=== PATIENT | female | born 1935 | race Caucasian/White ===

== ENCOUNTER 2017-03-02 10:39 | Outpatient (CLI) | payer MEDICARE, OTHER | END 2017-03-02 10:40 | LOC: LAB 10:39 | PROVIDERS: ATTEND Family Medicine | DX: E78.1 Pure hyperglyceridemia (principal); Z51.81 Encounter for therapeutic drug level monitoring | CPT/HCPCS: 36415; 80061; 84460 ==

== ENCOUNTER 2017-03-17 07:13 | Inpatient (IN) | payer MEDICARE, OTHER ==
[2017-03-17] MEDS ORDERED: IPRATROPIUM/ALBUTEROL SULFATE 3 ML AMPUL.NEB NEB ONE (07:37)
[2017-03-17 07:58] LABS: MEAN CORPUSCULAR HEMOGLOBIN 31.7 pg (28.0-34.0); MEAN CORPUSCULAR VOLUME 89.5 fl (80.0-100.0)
[2017-03-17 08:24] LABS: MONOCYTES % 3 % (0-11); SEGMENTED NEUTROPHILS % 32 % (39-79)
[2017-03-17 08:38] LABS: eGFR (African) > 60; eGFR (Non-African) > 60
[2017-03-17] MEDS ORDERED: LEVOFLOXACIN 500MG/D5W 100ML 100 ML IV ONE (09:14)
[2017-03-17] MEDS: LEVOFLOXACIN 500MG/D5W 100ML 500 MG in PREMIX BAG 1 BAG IV SCH (09:20)
[2017-03-17] MEDS ORDERED: FUROSEMIDE 20 MG/2 ML VIAL IVP ONE (10:00)
[2017-03-17] MEDS: SALINE FLUSH 10 ML DISP.SYRIN IV SCH ×2 (10:00→19:31)
[2017-03-17 10:58] VITALS: BMI 28.3
[2017-03-17] MEDS ORDERED: AZITHROMYCIN 500 MG in 0.9 % SODIUM CHLORIDE 250 ML IV SCH (11:00)
[2017-03-17] MEDS ORDERED: ACETAMINOPHEN 500 MG TABLET PO PRN (11:07)
[2017-03-17] MEDS ORDERED: ACETAMINOPHEN 500 MG TABLET ONE (11:09)
--- NOTE | 2017-03-17 11:25 | ED Physician Documentation ---
Upper Respiratory Symptoms - HISTORIAN Historian: patient - HPI Chief Complaint: Upper Respiratory Symptoms Additional Information: Nasal drainage and cough started one week ago but says they were allergy related in nature- started feeling really bad with weakness in the middle of the night around 3 a.m. Onset: days ago Duration: other (gradual onset) Context: denies: recent foreign travel, insect bite(s), tick(s), recent chemotherapy, multiple patients, same sx, other Severity: mild Associated Symptoms: earache, runny nose, sinus pain, sinus drainage, allergy, shortness of breath. denies: fever, chills, sweating, sore throat, hoarseness, hay fever, chest pain, bloody cough, hurts to breathe, headache Worsened by Deep Breath: No - ROS CONST/EYES: weakness CVS/RESP: shortness of breath. denies: chest pain, palpitations LYMPH: denies: leg swelling, rash, swollen glands, ankle swelling GI/: denies: none NEURO/PSYCH: denies: fainting, dizziness, confusion, anxiety, depression, other MS/SKIN: other (weakness) - PAST HX Lung Disease: none PE Risk Factors: hypertension Other History: CHF, A-Fib, hypertension, other (leukemia) Surgeries/Procedures: appendectomy, cholecystectomy, other (tonsillectomy) Allergies/Adverse Reactions: Allergies Allergy/AdvReac Type Severity Reaction Status Date / Time No Known Drug Allergies Allergy Verified 03/17/17 07:36 - SOCIAL HX Smoking History: non-smoker Alcohol Use: other (has one drink before bed) Drug Use: none - FAMILY HX Family History: denies: none, no significant history, aortic disease, cardiac disease, DVT, PE, other - VITAL SIGNS Vital Signs: Vital Signs Temp Pulse Resp BP Pulse Ox 98.3 F 85 20 130/94 94 03/17/17 10:00 03/17/17 10:00 03/17/17 10:00 03/17/17 10:03/17/17 10:00 - REVIEWED ASSESSMENTS Nursing Assessment Reviewed: Yes Vitals Reviewed: Yes Progress - Progress Progress: some improvement after first HFN tx- expiratory wheezes heard anteriorally with crackles in right lower lobe ED Results Lab/Radiology - Lab Results Lab Results: Lab Results 03/17/17 03/17/17 03/17/17 07:52 07:52 07:50 WBC 60.00 K/ul H* K/ul (4.00-12.00) RBC 5.03 M/ul M/ul (3.90-5.20) Hgb 15.9 g/dL g/dL (12.0-16.0) Hct 45.1 % % (34.5-46.5) MCV 89.5 fl fl (80.0-100.0) MCH 31.7 pg pg (28.0-34.0) MCHC 35.4 g/dL g/dL (30.0-36.0) RDW 14.5 % H % (11.3-14.3) Plt Count 166 K/mm3 K/mm3 (130-400) Seg Neutrophils % 32 % L % (39-79) Lymphocytes % 62 % H % (16-50) Monocytes % 3 % % (0-11) Reactive Lymphocytes 3 % % (0-5) Plt Morphology Comment Normal (NORMAL) RBC Morph Comment Normal (NORMAL) Sodium 135 mmol/L L mmol/L (136-145) Potassium 4.0 mmol/L mmol/L (3.5-5.0) Chloride 101 mmol/L mmol/L (98-110) Carbon Dioxide 27 mmol/L mmol/L (20-32) BUN 30 mg/dL H mg/dL (10-26) Creatinine 0.9 mg/dL mg/dL (0.4-1.5) Estimated Creat Clear 69 Est GFR ( Amer) > 60 (60 - ) Est GFR (Non-Af Amer) > 60 (60 - ) Glucose 292 mg/dL H mg/dL (70-99) Calcium 9.8 mg/dL mg/dL (8.5-10.5) Total Bilirubin 0.8 mg/dL mg/dL (0.2-1.2) AST 27 U/L U/L (0-41) ALT 42 U/L U/L (0-45) Alkaline Phosphatase 65 U/L U/L (46-116) NT-Pro-B Natriuret Pep 558.8 pg/mL H pg/mL (15.0-450.0) Total Protein 7.1 g/dL g/dL (6.0-8.5) Albumin 4.8 g/dL g/dL (3.0-5.5) - Radiology Radiology Impressions: Report Submission Date: March 17, 2017 8:25:55 AM CDT Patient Study Name: CHAYO CISNEROS Date: March 17, 2017 8:00:00 AM CDT Modality Type: CR Gender: F Description: CHEST : 31 Institution: [facility] Physician: VADIM WINTER - ER 2 views of the chest History: SHORTNESS OF BREATH AND COUGH X COUPLE DAYS Findings: Comparison: December 14, 2016 Cardiomegaly with aortic calcification Opacities noted in the right lung base with interstitial prominence, no pleural effusion or pneumothorax Multilevel thoracic spine, bilateral shoulder degenerative changes are seen Impression: 1. Right lower lung infiltrate/ airspace disease with interstitial prominence. Recommend followup to resolution and exclude underlying mass. No pleural effusion. 2. Cardiomegaly with aortic calcification and mild pulmonary vascular congestion 3. Minimal left basilar atelectasis. Electronically signed on March 17, 2017 8:25:55 AM CDT by: Flaquita Lee - Orders Orders: ED Orders Category Date Time Status Activity as ordered BID Care 03/17/17 09:31 Active Activity as ordered D Care 03/17/17 09:31 Active Assess pulse oximetry Q4H Care 03/17/17 09:31 Active Continuous EKG monitoring Q4H Care 03/17/17 09:31 Active Do Not Give Influenza Vaccine 1T Care 03/17/17 09:31 Active Do Not Give Pneumococcal Vacci 1T Care 03/17/17 09:31 Active Document Bowel Movement Q8H Care 03/17/17 09:[address] Winter NOW Care 03/17/17 09:31 Ordered Further Nursing Orders 1T Care 03/17/17 09:31 Active Inpatient (Anticipate > 2 Midnight Stay) NOW Care 03/17/17 09:31 Ordered Inpatient Telemetry NOW Care 03/17/17 09:31 Ordered No VTE Prophylaxis Needed .Once Care 03/17/17 09:31 Active Obtain weight DAILY@0500 Care 03/17/17 09:31 Active Physical Therapy [Refer to Physical Therapy] 1T Care 03/17/17 09:31 Active Vital Signs Q4 Care 03/17/17 09:31 Active Dietary Consult [CONS] Routine Cons 03/17/17 09:31 Ordered 2 Gram Sodium Diet 03/17/17 Lunch Ordered Regular Diet 03/17/17 Lunch Ordered CHEST P.A.&LAT 2 VIEWS [RAD] Routine Exams 03/17/17 Taken CHEST P.A.&LAT 2 VIEWS [RAD] Routine Exams 03/19/17 06:00 Ordered BLOOD CULTURE Stat Lab 03/17/17 09:13 Received BNP [NT-proBNP] Stat Lab 03/17/17 07:50 Completed CBC/PLATELET/DIFF Routine Lab 03/17/17 07:52 Completed CBC/PLATELET/DIFF Routine Lab 03/18/17 06:00 Ordered CMP Routine Lab 03/17/17 07:52 Completed Allopurinol [Zyloprim] Med 03/18/17 09:00 Ordered 300 mg PO DAILY Apixaban [Eliquis] Med 03/17/17 21:00 Ordered 5 mg PO BID Atenolol [Tenormin] Med 03/18/17 09:00 Ordered 25 mg PO DAILY Azithromycin [Zithromax] 500 mg Med 03/17/17 11:00 Ordered 0.9 % Sodium Chloride [Sodium Chloride] 250 ml IV Q24H Benazepril HCl [Lotensin] Med 03/18/17 09:00 Ordered 20 mg PO DAILY Calcium Carb 600Mg/Vit D-3 400 [Caltrate with Vit D-3] Med 03/18/17 09:00 Ordered 1 each PO DAILY Digoxin [Lanoxin] Med 03/18/17 09:00 Ordered 125 mcg PO DAILY Furosemide [Lasix] Med 03/17/17 10:00 Once 20 mg IVP DAILY ONE Hydrochlorothiazide [Hydrodiuril] Med 03/18/17 09:00 Ordered 25 mg PO DAILY Ipratropium/Albuterol Sulfate [Duoneb] Med 03/17/17 07:37 Discontinued 3 ml NEB NOW ONE Ipratropium/Albuterol Sulfate [Duoneb] Med 03/17/17 09:31 Ordered 3 ml NEB Q4 Levofloxacin 500Mg/D5w 100Ml [Levaquin] 100 ml Med 03/17/17 09:14 Discontinued IV .STK-MED Levofloxacin 500Mg/D5w 100Ml [Levaquin] 500 mg Med 03/17/17 09:31 Ordered Premix Bag [Premix Fluid] 1 bag IV NOW Multivitamin [Tab-A-Tara] Med 03/18/17 09:00 Ordered 1 each PO DAILY Pravastatin Sodium [Pravachol] Med 03/18/17 20:00 Ordered 20 mg PO DAILY Saline Flush [Normal Saline Flush] Med 03/17/17 09:31 Ordered 3 ml IV BID Resuscitation Status Routine Oth 03/17/17 09:31 Ordered Oxygen Daily Oxygen 03/17/17 07:45 Ordered HI FLOW NEBULIZER TX - INITIAL Routine Ther 03/17/17 Completed HIGH FLOW NEBULIZER Routine Ther 03/17/17 Completed OXIMETRY-SINGLE CHECK Routine Ther 03/17/17 Completed Transfer Routine Transfer 03/17/17 Completed Upper Respiratory Symptoms - EXAM General Appearance: alert, mild distress EENT: eyes nml inspection, nml ENT inspection, PERRL, ear nml (cerumen to left ear), other (clear nasal drainage) Neck: normal inspection Respiratory: speaks full sentences, accessory muscle use, wheezes (left anterior and posterior lobes), rales (rales heard in the right lower lobe), other (shortness of breath with exertion) Abdomen: non-tender, nml bowel sounds CVS: heart sounds normal, equal pulses, irregularly irregular rhy Skin: warm,dry (skin color-pale) Extremities: normal range of motion (c/o weakness and body feeling heavy) Neuro/Psych: oriented x3, neuro intact Discharge Clincal Impression: Pneumonia Qualifiers: Pneumonia type: due to unspecified organism Laterality: right Lung location: lower lobe of lung Qualified Code(s): J18.1 - Lobar pneumonia, unspecified organism Condition: Stable Decision to Admit: [id number] Date of Decison to Admit: 03/17/17 Decision Time: 09:15
[2017-03-17] MEDS ORDERED: PRAVASTATIN SODIUM 20 MG TABLET ONE (11:34)
[2017-03-17] MEDS: IPRATROPIUM/ALBUTEROL SULFATE 3 ML AMPUL.NEB NEB SCH ×4 (11:34→21:12)
[2017-03-17] MEDS: AZITHROMYCIN 500 MG in 0.9 % SODIUM CHLORIDE 250 ML IV SCH (13:04)
[2017-03-17 15:15] LABS: APPEARANCE,URINE Clear (CLEAR); COLOR,URINE Yellow (YELLOW); OCCULT BLOOD,URINE Negative (NEGATIVE); UROBILINOGEN URINE 0.2 Eu (0.2-1.0)
--- NOTE | 2017-03-17 18:00 | Diagnostic Imaging Report ---
[facility] [address] [facility].[address] [address] Report Submission Date: March 17, 2017 8:25:55 AM CDT Patient Study Name: CHAYO CISNEROS Date: March 17, 2017 8:00:00 AM CDT Modality Type: CR Gender: F Description: CHEST : 31 Institution: [facility] Physician: VADIM RO 2 views of the chest History: SHORTNESS OF BREATH AND COUGH X COUPLE DAYS Findings: Comparison: December 14, 2016 Cardiomegaly with aortic calcification Opacities noted in the right lung base with interstitial prominence, no pleural effusion or pneumothorax Multilevel thoracic spine, bilateral shoulder degenerative changes are seen Impression: 1. Right lower lung infiltrate/ airspace disease with interstitial prominence. Recommend followup to resolution and exclude underlying mass. No pleural effusion. 2. Cardiomegaly with aortic calcification and mild pulmonary vascular congestion 3. Minimal left basilar atelectasis. Electronically signed on March 17, 2017 8:25:55 AM CDT by: Flaquita AGUILAR
[2017-03-17] MEDS: APIXABAN 2.5 MG TABLET PO SCH (19:28)
[2017-03-17] MEDS: PRAVASTATIN SODIUM 20 MG TABLET PO SCH (19:29)
[2017-03-17] MEDS: ATENOLOL 25 MG TABLET PO SCH (19:29)
[2017-03-17] MEDS ORDERED: FUROSEMIDE 20 MG TABLET PO ONE (19:46)
[2017-03-17] MEDS: ACETAMINOPHEN 500 MG TABLET PO SCH (21:12)
[2017-03-18] MEDS: IPRATROPIUM/ALBUTEROL SULFATE 3 ML AMPUL.NEB NEB SCH ×6 (01:17→20:50)
[2017-03-18] MEDS: ACETAMINOPHEN 500 MG TABLET PO SCH ×7 (01:17→19:39)
[2017-03-18 06:41] LABS: MEAN CORPUSCULAR HEMOGLOBIN 31.1 pg (28.0-34.0); MEAN CORPUSCULAR VOLUME 90.5 fl (80.0-100.0)
[2017-03-18 07:37] LABS: MONOCYTES % 2 % (0-11); SEGMENTED NEUTROPHILS % 22 % (39-79)
[2017-03-18] MEDS ORDERED: LEVOFLOXACIN 500MG/D5W 100ML 100 ML IV ONE (08:37)
[2017-03-18] MEDS: CALCIUM CARB 600MG/VIT D-3 400 1 EACH TABLET PO SCH (08:40)
[2017-03-18] MEDS: APIXABAN 2.5 MG TABLET PO SCH ×2 (08:41→19:37)
[2017-03-18] MEDS: HYDROCHLOROTHIAZIDE 25 MG TABLET PO SCH (08:42)
[2017-03-18] MEDS: DIGOXIN 125 MCG TABLET PO SCH (08:42)
[2017-03-18] MEDS: LEVOFLOXACIN 500MG/D5W 100ML 500 MG in PREMIX BAG 1 BAG IV SCH ×2 (08:43→08:57)
[2017-03-18] MEDS: ALLOPURINOL 100 MG TABLET PO SCH (08:46)
[2017-03-18] MEDS: SALINE FLUSH 10 ML DISP.SYRIN IV SCH ×2 (08:57→19:38)
[2017-03-18] MEDS: BENAZEPRIL HCL 10 MG TABLET PO SCH (08:59)
[2017-03-18] MEDS ORDERED: ATENOLOL 25 MG TABLET PO SCH ×2 (09:00→21:00)
[2017-03-18] MEDS: MULTIVITAMIN 1 EACH TABLET PO SCH (09:06)
[2017-03-18] MEDS: AZITHROMYCIN 500 MG in 0.9 % SODIUM CHLORIDE 250 ML IV SCH (13:15)
[2017-03-18] MEDS: PRAVASTATIN SODIUM 20 MG TABLET PO SCH (19:38)
[2017-03-18] MEDS: ATENOLOL 25 MG TABLET PO SCH (19:38)
[2017-03-18] MEDS ORDERED: PRAVASTATIN SODIUM 20 MG TABLET PO SCH (20:00)
--- NOTE | 2017-03-18 20:36 | Inpatient Progress Note ---
Subjective - Required Recertification Statement I anticipate X number of days because-include discharge plan: 1 day - Review of Systems Events since last encounter: Patientstates that she seems to be doing better at this time. Breathing is better. Is still getting SOB with exertion. Still has a cough that is mildly productive in nature. Has had a low grade fever. Patient states that she is still unsteady on her feet. Has not been seen by PT yet. Patient did not sleep well last noc but does not want a sleeping aid. General: Chills Cardiovascular: Denies: Palpitations Gastrointestinal: Denies: Nausea, Vomiting Objective - Exam Vitals and I&O: Vital Signs Temp 98.3 F 03/18/17 18:00 Pulse 80 03/18/17 18:00 Resp 20 03/18/17 18:00 BP 137/62 03/18/17 18:00 Pulse Ox 93 03/18/17 18:00 Intake & Output 03/17/17 03/18/17 03/18/17 23:59 11:59 23:59 Intake Total 680 150 580 Output Total 450 Balance 680 -300 580 Weight 74.843 kg 74.389 kg Intake: Oral 680 150 580 Output: Urine 450 Other: Voiding Method Toilet Toilet General: Alert, Oriented to Person, Oriented to Place, Oriented to Time, Cooperative Neck: Supple, No JVD Lungs: Normal air movement, Speaks full Sentences, Rales (Inlower lobes, R>L) Cardiovascular: Normal S1, Normal S2, No murmurs, Atrial Fib Abdomen: Normal bowel sounds, Soft, No tenderness Skin: Normal, [place], Warm, Dry - Results Results: Laboratory Results WBC 53.39 K/ul (4.00-12.00) H* 03/18/17 06:30 RBC 5.03 M/ul (3.90-5.20) 03/18/17 06:30 Hgb 15.6 g/dL (12.0-16.0) 03/18/17 06:30 Hct 45.5 % (34.5-46.5) 03/18/17 06:30 MCV 90.5 fl (80.0-100.0) 03/18/17 06:30 MCH 31.1 pg (28.0-34.0) 03/18/17 06:30 MCHC 34.4 g/dL (30.0-36.0) 03/18/17 06:30 RDW 14.5 % (11.3-14.3) H 03/18/17 06:30 Plt Count 163 K/mm3 (130-400) 03/18/17 06:30 Seg Neutrophils % 22 % (39-79) L 03/18/17 06:30 Band Neutrophils % 1 % (0-12) 03/18/17 06:30 Lymphocytes % 75 % (16-50) H 03/18/17 06:30 Monocytes % 2 % (0-11) 03/18/17 06:30 Reactive Lymphocytes 3 % (0-5) 03/17/17 07:52 Plt Morphology Comment Normal (NORMAL) 03/18/17 06:30 RBC Morph Comment Normal (NORMAL) 03/18/17 06:30 Sodium 135 mmol/L (136-145) L 03/17/17 07:52 Potassium 4.0 mmol/L (3.5-5.0) 03/17/17 07:52 Chloride 101 mmol/L (98-110) 03/17/17 07:52 Carbon Dioxide 27 mmol/L (20-32) 03/17/17 07:52 BUN 30 mg/dL (10-26) H 03/17/17 07:52 Creatinine 0.9 mg/dL (0.4-1.5) 03/17/17 07:52 Estimated Creat Clear 69 03/17/17 07:52 Est GFR ( Amer) > 60 (60-) 03/17/17 07:52 Est GFR (Non-Af Amer) > 60 (60-) 03/17/17 07:52 Glucose 292 mg/dL (70-99) H 03/17/17 07:52 Calcium 9.8 mg/dL (8.5-10.5) 03/17/17 07:52 Total Bilirubin 0.8 mg/dL (0.2-1.2) 03/17/17 07:52 AST 27 U/L (0-41) 03/17/17 07:52 ALT 42 U/L (0-45) 03/17/17 07:52 Alkaline Phosphatase 65 U/L (46-116) 03/17/17 07:52 NT-Pro-B Natriuret Pep 558.8 pg/mL (15.0-450.0) H 03/17/17 07:50 Total Protein 7.1 g/dL (6.0-8.5) 03/17/17 07:52 Albumin 4.8 g/dL (3.0-5.5) 03/17/17 07:52 Urine Color Yellow (YELLOW) 03/17/17 15:08 Urine Appearance Clear (CLEAR) 03/17/17 15:08 Urine pH 5.0 (5.0 - 8.0) 03/17/17 15:08 Ur Specific Amanda 1.010 (1.010-1.030) 03/17/17 15:08 Urine Protein Negative mg/dL (NEGATIVE) 03/17/17 15:08 Urine Ketones Negative mg/dL (NEGATIVE) 03/17/17 15:08 Urine Occult Blood Negative (NEGATIVE) 03/17/17 15:08 Urine Nitrite Negative (NEGATIVE) 03/17/17 15:08 Urine Bilirubin Negative (NEGATIVE) 03/17/17 15:08 Urine Urobilinogen 0.2 Eu (0.2-1.0) 03/17/17 15:08 Ur Leukocyte Esterase Negative (NEGATIVE) 03/17/17 15:08 Urine Glucose Negative mg/dL (NEGATIVE) 03/17/17 15:08 Assessment/Plan - Assessment/Plan (1) Pneumonia Status: Acute Current Visit: Yes Assessment: appears to be improved. Will continue with current medication and treatment. WBC count is improved. (2) Congestive heart failure (CHF) Status: Acute Current Visit: Yes Qualifiers: Congestive heart failure chronicity: acute on chronic Assessment: appears laz doing better, will recheck x-ray, BMP in AM (3) Hypertension Status: Acute Current Visit: Yes Qualifiers: Hypertension type: essential hypertension Qualified Code(s): I10 - Essential (primary) hypertension Assessment: stable, will continue with home med (4) Leukemia Status: Acute Current Visit: Yes Qualifiers: Lymphoid leukemia type: chronic lymphocytic B-cell Assessment: stable (5) Atrial fibrillation Status: Acute Current Visit: Yes Qualifiers: Atrial fibrillation type: chronic Qualified Code(s): I48.2 - Chronic atrial fibrillation Assessment: no tachy or bradycardia (6) Hyperlipemia Status: Acute Current Visit: Yes Qualifiers: Hyperlipidemia type: other hyperlipidemia Qualified Code(s): E78.4 - Other hyperlipidemia
--- NOTE | 2017-03-18 20:38 | History and Physical Report ---
History of Present Illnes - History of Present Illness Reason for Visit: Upper Respiratory Symptoms History of Present Illness: Ms. Villavicencio is an 81 year old women that came in through the ER this morning via POV with son from home. Patient c/o runny nose, cough, frontal sinus pressure, and right ear discomfort for one week. Patient relates this to allergy season. Patient spent the day yesterday working in her garden. At approximately 3 this morning patient felt very weak with increasing cough, runny nose, and aches. She stated that she felt very unsteady when trying to get up and son had to come over and help her. - Past Medical History Cardiac: AFIB, CHF, HTN, Hyperlipidemia Pulmonary: Previously intubated [employer]ING [employer]: denies: Carpal Tunnel Syndrome, CVA, Dementia, Migraine, Peripheral neuropathy, Seizure, TIA, Vertigo, Other Gastrointestinal: Constipation Heme/Onc: Cancer (chronic lymphocytic leukemia) Hepatobiliary: denies: Cirrhosis, Cholelithiasis, Hep A/B/C, Other Psych: denies: Anxiety, Addictions, Bipolar, Depression, Panic, Psychosis, Schizophrenia, Other Musculoskeletal: Chronic low back pain, Osteoarthritis Rheumatologic: Gout Infectious Disease: denies: Bacterial vaginosis, [place], Gonorrhea, HIV, Human papilloma virus, Herpes simplex 1, Herpes simplex 2, Herpes zoster, Other ENT: denies: Sinusitis, Allergic rhinitis, Other Renal/: denies: Chronic renal insuff, Acute renal failure, Chronic renal failure, UTI, Benign prostatic enlarg., Hematuria, Other Endocrine: denies: Diabetes, Hyperthyroidism, Hypothyroidism, Hyperparathyroidism, Osteopenia, Osteoporosis, Other Dermatology: denies: Eczema, Cellulitis, Psoriasis, Melanoma, Basal cell, Squamous cell, Other Grav: 2 Para: 2 Ab: 0 - Past Surgical History Past Surgical History: Appendectomy, Cholecystectomy, , Tonsillectomy - Past Family History Mother Family History: Father Family History: - Past Social History Smoke: No Alcohol: None Drugs: None Lives: Alone Domestic Violence: Negative - Health Maintenance Health Maintenance: Cholesterol (last 03/02/17 = 159), Influenza Vaccine, Pneumococcal Vaccine, Mammogram (May 2016). denies: Tetanus (unsure), Colonoscopy (never had one- endoscopy in 2006) Influenza Vaccine: Current for this Influenza Season Pneumonia Vaccine: Yes Resuscitation Status: Resusciation Status Resuscitation Status Do Not Resuscitate Review of Systems - Review of Systems Constitutional: Weakness. negative: Fever, Chills, Sweats Eyes: negative: pain, vision change, conjunctivae inflammation, eyelid inflammation, redness, Deferred, other ENT: Ear Pain (right ear sore), Nose Discharge (clear nasal drainage) Respiratory: Cough, Shortness of Breath, SOB with Excertion, Wheezing Cardiovascular: negative: Chest Pain, Palpitations, Orthopnea, Paroxysmal Noc. Dyspnea, Edema, Light Headedness, Deferred, Other Gastrointestinal: negative: Nausea, Vomiting, Abdominal Pain, Diarrhea, Constipation, Melena, Hematochezia, Deferred, Other Genitourinary: negative: Dysuria, Frequency, Incontinence, Hematuria, Retention , Deferred, Other Musculoskeletal: Back Pain (chronic back pain) Skin: negative: Rash, Lesions, Jaundice, Bruising, Deferred, Other Neurological: negative: Numbness, Incoordination, Change in Speech, Confusion - Medications/Allergies Allergies/Adverse Reactions: Allergies Allergy/AdvReac Type Severity Reaction Status Date / Time No Known Drug Allergies Allergy Verified 03/17/17 07:36 Current Inpatient Medications: Current Inpatient Medications Albuterol/Ipratropium (Duoneb) 3 ml NEB Q4 [facility] Allopurinol (Zyloprim) 300 mg PO DAILY [facility] Atenolol (Tenormin) 25 mg PO DAILY [facility] Benazepril HCl (Lotensin) 20 mg PO DAILY [facility] Calcium/Vitamin D (Caltrate With Vit D-3) 1 each PO DAILY [facility] Digoxin (Lanoxin) 125 mcg PO DAILY [facility] Furosemide (Lasix) 20 mg IVP DAILY ONE Stop: 03/17/17 10:01 Hydrochlorothiazide (Hydrodiuril) 25 mg PO DAILY [facility] Azithromycin 500 mg/ Sodium (Chloride) 250 mls @ 125 mls/hr IV Q24H [facility]ICEO Stop: 03/27/17 10:59 Levofloxacin/Dextrose 500 mg/ (PREMIX BAG) 100 mls @ 100 mls/hr IV NOW [facility] Multivitamins (Tab-A-Tara) 1 each PO DAILY [facility] Pravastatin Sodium (Pravachol) 20 mg PO DAILY [facility] Sodium Chloride (Normal Saline Flush) 3 ml IV BID [facility] Exam - Exam Vital Signs: Vital Signs (72 hours) 03/17/17 09:31 O2 Sat by Pulse 94 Oximetry General: Alert, Oriented to Person, Oriented to Place, Oriented to Time, Cooperative, Mild distress, Obese HEENT: PERRLA, EOMI, Mouth Mucous membr. moist/Qulin, Nose Mucous membr. moist/ Qulin (clear nasal drainage) Neck: Normal Range of Motion Lungs: Speaks full Sentences, Wheezes, Rales, Accessory Muscle Use (patient increasingly short of breath walking back from bathroom) Cardiovascular: Irregularly Irregular, Atrial Fib. No: Rubs, Murmur Murmur: No: Systolic Murmur, Diastolic Murmur, Rub, S3 Gallop, S4 Gallop, Click , Other Abdomen: Normal bowel sounds, Soft, No tenderness Genitourinary: No: Right Inguinal Hernia, Left Inguinal Hernia, Right Inguinal Lymph, Left Inguinal Lymph, Other Integumentary: Warm, Dry, Pale, Erythema Extremities: No edema, Normal pulses, No tenderness/swelling Neurological: Normal speech, Strength Equal Bilat, Sensation intact, Generalized Weakness Psych/Mental Status: Mental status NL, Mood NL, Appropriate Affect, Intact Judgment (pt is just very tired) Assessment/Plan - Assessment/Plan (1) Pneumonia Status: Acute Current Visit: Yes Qualifiers: Pneumonia type: due to unspecified organism Laterality: right Lung location: lower lobe of lung Qualified Code(s): J18.1 - Lobar pneumonia, unspecified organism (2) Congestive heart failure (CHF) Status: Acute Current Visit: Yes Qualifiers: Congestive heart failure chronicity: acute on chronic (3) Hypertension Status: Acute Current Visit: Yes Qualifiers: Hypertension type: essential hypertension Qualified Code(s): I10 - Essential (primary) hypertension (4) Leukemia Status: Acute Current Visit: Yes Qualifiers: Lymphoid leukemia type: chronic lymphocytic B-cell (5) Atrial fibrillation Status: Acute Current Visit: Yes Qualifiers: Atrial fibrillation type: chronic Qualified Code(s): I48.2 - Chronic atrial fibrillation (6) Hyperlipemia Status: Acute Current Visit: Yes Qualifiers: Hyperlipidemia type: other hyperlipidemia Qualified Code(s): E78.4 - Other hyperlipidemia VTE Assessment - RISK FACTOR SCORE VTE RISK FACTOR SCORES: AGE OVER 60 YEARS, ACUTE INFECTION OTHER THEN SEPSIS, CONGESTIVE HEART FAILURE OR MYOCARDIAL INFARCTION - RISK VTE HIGH RISK: SCORE OF 3-4 (RISK PROXIMAL DVT 4-8%) PROPHYLAXIS NEEDED
[2017-03-19] MEDS: IPRATROPIUM/ALBUTEROL SULFATE 3 ML AMPUL.NEB NEB SCH ×6 (01:10→22:40)
[2017-03-19] MEDS: ACETAMINOPHEN 500 MG TABLET PO SCH ×6 (04:11→20:00)
[2017-03-19] MEDS ORDERED: LEVOFLOXACIN 500MG/D5W 100ML 100 ML IV ONE (08:48)
[2017-03-19] MEDS: CALCIUM CARB 600MG/VIT D-3 400 1 EACH TABLET PO SCH (08:53)
[2017-03-19] MEDS: HYDROCHLOROTHIAZIDE 25 MG TABLET PO SCH (08:54)
[2017-03-19] MEDS: APIXABAN 2.5 MG TABLET PO SCH ×2 (08:54→20:00)
[2017-03-19] MEDS: DIGOXIN 125 MCG TABLET PO SCH (08:55)
[2017-03-19] MEDS: MULTIVITAMIN 1 EACH TABLET PO SCH (08:56)
[2017-03-19] MEDS: BENAZEPRIL HCL 10 MG TABLET PO SCH (08:56)
[2017-03-19] MEDS: ALLOPURINOL 100 MG TABLET PO SCH (08:57)
[2017-03-19] MEDS: SALINE FLUSH 10 ML DISP.SYRIN IV SCH ×2 (09:00→19:57)
[2017-03-19] MEDS: LEVOFLOXACIN 500MG/D5W 100ML 500 MG in PREMIX BAG 1 BAG IV SCH (09:07)
[2017-03-19 10:31] LABS: eGFR (African) > 60; eGFR (Non-African) > 60
[2017-03-19 10:38] LABS: MEAN CORPUSCULAR HEMOGLOBIN 31.3 pg (28.0-34.0); MEAN CORPUSCULAR VOLUME 89.9 fl (80.0-100.0)
--- NOTE | 2017-03-19 11:31 | Diagnostic Imaging Report ---
[facility] [address] [facility] [address] [address] Report Submission Date: Mar 19, 2017 11:29:28 AM CDT Patient Study Name: CHAYO CISNEROS Date: Mar 19, 2017 10:44:39 AM CDT Modality Type: CR Gender: F Description: CHEST : 31 Institution: [facility] Physician: [facility] Chest 2 views History: Cough and shortness of breath Findings: The cardiac silhouette is mildly enlarged. Lungs are mildly hyperinflated Pulmonary vascular congestion is present. Trace left pleural effusion may be present. Hazy right basilar infiltrate or edema is observed. The left lung is clear. Osseous structures are intact. Impression: 1. Probably mild congestive heart failure, improved since March 17, 2017. Mild residual right basilar infiltrate or edema is observed. 2. Mild hyperinflation. Electronically signed on Mar 19, 2017 11:29:28 AM CDT by: Jensen AGUILAR
[2017-03-19 11:45] LABS: BASOPHILS % 1 % (0-2); MONOCYTES % 1 % (0-11); SEGMENTED NEUTROPHILS % 27 % (39-79); SMUDGE CELLS 57 #PER 100 (0-0)
[2017-03-19] MEDS: AZITHROMYCIN 500 MG in 0.9 % SODIUM CHLORIDE 250 ML IV SCH (12:45)
[2017-03-19] MEDS: PRAVASTATIN SODIUM 20 MG TABLET PO SCH (20:00)
[2017-03-19] MEDS: ATENOLOL 25 MG TABLET PO SCH (20:00)
[2017-03-20] MEDS: IPRATROPIUM/ALBUTEROL SULFATE 3 ML AMPUL.NEB NEB SCH ×3 (01:05→09:10)
[2017-03-20] MEDS: ACETAMINOPHEN 500 MG TABLET PO SCH ×3 (01:45→09:28)
[2017-03-20 08:31] VITALS: BP 117/55
[2017-03-20] MEDS: CALCIUM CARB 600MG/VIT D-3 400 1 EACH TABLET PO SCH (09:25)
[2017-03-20] MEDS: HYDROCHLOROTHIAZIDE 25 MG TABLET PO SCH (09:25)
[2017-03-20] MEDS: ALLOPURINOL 100 MG TABLET PO SCH (09:25)
[2017-03-20] MEDS: LEVOFLOXACIN 500MG/D5W 100ML 500 MG in PREMIX BAG 1 BAG IV SCH (09:26)
[2017-03-20] MEDS: DIGOXIN 125 MCG TABLET PO SCH (09:26)
[2017-03-20] MEDS: APIXABAN 2.5 MG TABLET PO SCH (09:26)
[2017-03-20] MEDS: SALINE FLUSH 10 ML DISP.SYRIN IV SCH (09:27)
[2017-03-20] MEDS: BENAZEPRIL HCL 10 MG TABLET PO SCH (09:27)
[2017-03-20] MEDS: MULTIVITAMIN 1 EACH TABLET PO SCH (09:27)
== END 2017-03-20 10:36 | DRG 193 ==
LOC: ED 07:13 → SOUTH 09:20
PROVIDERS: ADMIT Family Medicine; ATTEND Family Medicine
DX: J18.9 Pneumonia, unspecified organism (principal); I50.43 Acute on chronic combined systolic (congestive) and diastolic (congestive) heart failure; C95.90 Leukemia, unspecified not having achieved remission; I11.0 Hypertensive heart disease with heart failure; I48.91 Unspecified atrial fibrillation; E78.5 Hyperlipidemia, unspecified
CPT/HCPCS: 36415; 71020; 80048; 80053; 81002; 83880; 85025; 87040; 94640; 94760; 99223; 99232; 99238; 99283; 99284; J0456; J1940; J1956; J7050; A9270-GY; S1016

== ENCOUNTER 2017-03-20 10:36 | Inpatient (IN) | payer MEDICARE, OTHER ==
[2017-03-20] MEDS ORDERED: IPRATROPIUM/ALBUTEROL SULFATE 3 ML AMPUL.NEB NEB PRN (11:20)
[2017-03-20 13:20] VITALS: BMI 28.1
[2017-03-20] MEDS: ACETAMINOPHEN 500 MG TABLET PO SCH ×3 (13:54→20:02)
[2017-03-20] MEDS ORDERED: APIXABAN 2.5 MG TABLET PO ONE (18:05)
[2017-03-20] MEDS ORDERED: PRAVASTATIN SODIUM 20 MG TABLET ONE (19:59)
[2017-03-20] MEDS ORDERED: ATENOLOL 25 MG TABLET PO ONE (20:00)
[2017-03-20] MEDS: APIXABAN 2.5 MG TABLET PO SCH (20:33)
[2017-03-20] MEDS ORDERED: APIXABAN 2.5 MG TABLET PO SCH (21:00)
[2017-03-21] MEDS: ACETAMINOPHEN 500 MG TABLET PO SCH ×2 (00:33→05:50)
[2017-03-21] MEDS ORDERED: PRAVASTATIN SODIUM 20 MG TABLET ONE (03:57)
[2017-03-21] MEDS ORDERED: ACETAMINOPHEN 500 MG TABLET ONE (03:57)
[2017-03-21] MEDS ORDERED: ATENOLOL 25 MG TABLET PO ONE (03:58)
[2017-03-21 07:03] LABS: MEAN CORPUSCULAR HEMOGLOBIN 31.2 pg (28.0-34.0); MEAN CORPUSCULAR VOLUME 89.6 fl (80.0-100.0)
[2017-03-21] MEDS ORDERED: ACETAMINOPHEN 500 MG TABLET PO PRN (07:09)
[2017-03-21 07:53] LABS: BASOPHILS % 1 % (0-2); MONOCYTES % 3 % (0-11); SEGMENTED NEUTROPHILS % 20 % (39-79); SMUDGE CELLS 26 #PER 100 (0-0)
[2017-03-21] MEDS ORDERED: ATENOLOL 25 MG TABLET PO SCH (09:00)
[2017-03-21] MEDS ORDERED: PRAVASTATIN SODIUM 20 MG TABLET PO SCH (09:00)
[2017-03-21] MEDS: ALLOPURINOL 100 MG TABLET PO SCH (09:10)
[2017-03-21] MEDS: LEVOFLOXACIN 500 MG TABLET PO SCH (09:10)
[2017-03-21] MEDS: AZITHROMYCIN 250 MG TABLET PO SCH (09:10)
[2017-03-21] MEDS: CALCIUM CARB 500/VIT D 200 1 EACH TABLET PO SCH (09:10)
[2017-03-21] MEDS: DIGOXIN 125 MCG TABLET PO SCH (09:11)
[2017-03-21] MEDS: MULTIVITAMIN 1 EACH TABLET PO SCH (09:11)
[2017-03-21] MEDS: HYDROCHLOROTHIAZIDE 25 MG TABLET PO SCH (09:11)
[2017-03-21] MEDS: LISINOPRIL 20 MG TABLET PO SCH (09:12)
[2017-03-21] MEDS: APIXABAN 2.5 MG TABLET PO SCH ×2 (09:12→20:43)
[2017-03-21] MEDS: ATENOLOL 25 MG TABLET PO SCH (20:43)
[2017-03-21] MEDS: PRAVASTATIN SODIUM 20 MG TABLET PO SCH (20:43)
[2017-03-22] MEDS: HYDROCHLOROTHIAZIDE 25 MG TABLET PO SCH (08:32)
[2017-03-22] MEDS: DIGOXIN 125 MCG TABLET PO SCH (08:32)
[2017-03-22] MEDS: APIXABAN 2.5 MG TABLET PO SCH ×2 (08:32→20:32)
[2017-03-22] MEDS: LEVOFLOXACIN 500 MG TABLET PO SCH (08:33)
[2017-03-22] MEDS: PRAVASTATIN SODIUM 20 MG TABLET PO SCH (08:33)
[2017-03-22] MEDS: ATENOLOL 25 MG TABLET PO SCH (08:34)
[2017-03-22] MEDS: LISINOPRIL 20 MG TABLET PO SCH (08:34)
[2017-03-22] MEDS: ALLOPURINOL 100 MG TABLET PO SCH (08:34)
[2017-03-22] MEDS: AZITHROMYCIN 250 MG TABLET PO SCH (08:34)
[2017-03-22] MEDS: MULTIVITAMIN 1 EACH TABLET PO SCH (08:34)
[2017-03-22] MEDS: CALCIUM CARB 500/VIT D 200 1 EACH TABLET PO SCH (08:35)
[2017-03-23] MEDS: ALLOPURINOL 100 MG TABLET PO SCH (08:59)
[2017-03-23] MEDS: DIGOXIN 125 MCG TABLET PO SCH (09:00)
[2017-03-23] MEDS: MULTIVITAMIN 1 EACH TABLET PO SCH (09:00)
[2017-03-23] MEDS: CALCIUM CARB 500/VIT D 200 1 EACH TABLET PO SCH (09:00)
[2017-03-23] MEDS: HYDROCHLOROTHIAZIDE 25 MG TABLET PO SCH (09:00)
[2017-03-23] MEDS: LEVOFLOXACIN 500 MG TABLET PO SCH (09:00)
[2017-03-23] MEDS: APIXABAN 2.5 MG TABLET PO SCH ×2 (09:00→19:45)
[2017-03-23] MEDS: LISINOPRIL 20 MG TABLET PO SCH (09:01)
[2017-03-23] MEDS: PRAVASTATIN SODIUM 20 MG TABLET PO SCH ×4 (09:09→19:49)
[2017-03-23] MEDS: ATENOLOL 25 MG TABLET PO SCH (20:11)
[2017-03-24] MEDS: CALCIUM CARB 500/VIT D 200 1 EACH TABLET PO SCH (10:15)
[2017-03-24] MEDS: APIXABAN 2.5 MG TABLET PO SCH ×2 (10:15→19:36)
[2017-03-24] MEDS: LISINOPRIL 20 MG TABLET PO SCH (10:16)
[2017-03-24] MEDS: ALLOPURINOL 100 MG TABLET PO SCH (10:16)
[2017-03-24] MEDS: MULTIVITAMIN 1 EACH TABLET PO SCH (10:16)
[2017-03-24] MEDS: LEVOFLOXACIN 500 MG TABLET PO SCH (10:16)
[2017-03-24] MEDS: DIGOXIN 125 MCG TABLET PO SCH (10:16)
[2017-03-24] MEDS: HYDROCHLOROTHIAZIDE 25 MG TABLET PO SCH (10:16)
[2017-03-24] MEDS: ATENOLOL 25 MG TABLET PO SCH (19:36)
[2017-03-24] MEDS: PRAVASTATIN SODIUM 20 MG TABLET PO SCH (21:00)
[2017-03-25] MEDS ORDERED: LORATADINE 10 MG TABLET PO PRN (08:04)
[2017-03-25] MEDS: APIXABAN 2.5 MG TABLET PO SCH ×2 (08:11→19:29)
[2017-03-25] MEDS: CALCIUM CARB 500/VIT D 200 1 EACH TABLET PO SCH (08:11)
[2017-03-25] MEDS: HYDROCHLOROTHIAZIDE 25 MG TABLET PO SCH (08:11)
[2017-03-25] MEDS: DIGOXIN 125 MCG TABLET PO SCH (08:11)
[2017-03-25] MEDS: LEVOFLOXACIN 500 MG TABLET PO SCH (08:11)
[2017-03-25] MEDS: LISINOPRIL 20 MG TABLET PO SCH (08:12)
[2017-03-25] MEDS: MULTIVITAMIN 1 EACH TABLET PO SCH (08:12)
[2017-03-25] MEDS: ALLOPURINOL 100 MG TABLET PO SCH (08:12)
[2017-03-25 09:43] LABS: MEAN CORPUSCULAR HEMOGLOBIN 30.9 pg (28.0-34.0); MEAN CORPUSCULAR VOLUME 90.4 fl (80.0-100.0)
[2017-03-25 10:01] LABS: MONOCYTES % 1 % (0-11); SEGMENTED NEUTROPHILS % 37 % (39-79)
[2017-03-25 10:02] LABS: SMUDGE CELLS 13 #PER 100 (0-0)
[2017-03-25] MEDS: ATENOLOL 25 MG TABLET PO SCH (19:29)
[2017-03-25] MEDS: PRAVASTATIN SODIUM 20 MG TABLET PO SCH (21:00)
[2017-03-26] MEDS: APIXABAN 2.5 MG TABLET PO SCH (08:32)
[2017-03-26] MEDS: CALCIUM CARB 500/VIT D 200 1 EACH TABLET PO SCH (08:32)
[2017-03-26] MEDS: HYDROCHLOROTHIAZIDE 25 MG TABLET PO SCH (08:33)
[2017-03-26] MEDS: LEVOFLOXACIN 500 MG TABLET PO SCH (08:33)
[2017-03-26] MEDS: DIGOXIN 125 MCG TABLET PO SCH (08:33)
[2017-03-26] MEDS: ALLOPURINOL 100 MG TABLET PO SCH (08:34)
[2017-03-26] MEDS: MULTIVITAMIN 1 EACH TABLET PO SCH (08:34)
[2017-03-26] MEDS: LISINOPRIL 20 MG TABLET PO SCH (08:34)
[2017-03-26 08:47] VITALS: BP 144/77
--- NOTE | 2017-05-21 10:26 | Discharge Summary ---
DATE OF ADMISSION: March 20, 2017 DATE OF DISCHARGE: March 26, 2017 DIAGNOSES ON THIS HOSPITALIZATION: 1. Atrial fibrillation. 2. Congestive heart failure. 3. Hyperlipidemia. 4. Hypertension. 5. Pneumonia. 6. Chronic lymphocytic leukemia. SUMMARIZATION OF ADMISSION HISTORY AND PHYSICAL: This is an 81-year-old female who was admitted to [facility] from acute care. She was admitted after being initially admitted for pneumonia. She actually did very well with therapy. She was able to walk fairly well and made significant progress with therapy and she was discharged to home on March 26, 2017, with the following medications on discharge. MEDICATIONS ON DISCHARGE: 1. Allopurinol 300 mg p.o. daily. 2. Eliquis 5 mg p.o. b.i.d. 3. Atenolol 25 mg p.o. at bedtime. 4. Digoxin 0.125 mg p.o. daily. 5. Hydrochlorothiazide 25 mg p.o. daily. 6. Lisinopril 20 mg p.o. daily. 7. Multivitamin 1 p.o. daily. 8. Loratadine 10 mg p.o. daily. 9. Pravastatin 20 mg p.o. daily. Levofloxacin had been completed. She did not need to continue that. DISCHARGE CONDITION: She was discharged to home in improved condition. DISCHARGE INSTRUCTIONS: She will follow up with myself in 2 weeks after discharge. LAUREN
--- NOTE | 2017-06-30 10:36 | History and Physical Report ---
History of Present Illnes - History of Present Illness Reason for Visit: gait disturbance History of Present Illness: 81-year-old white female who was recently admitted to the hospital for pneumonia. During her course of day patient became more debilitated was having some increasing difficulties with ambulation. Patient was unstable on her feet. It was felt that the patient would benefit from further skilled therapy with occupational and physical therapy. Patient was subsequently admitted to SNF. - Past Medical History Cardiac: AFIB, CHF, HTN, Hyperlipidemia Pulmonary: Previously intubated Gastrointestinal: Constipation Heme/Onc: Cancer (chronic lymphocytic leukemia) Musculoskeletal: Chronic low back pain, Osteoarthritis Rheumatologic: Gout Grav: 2 - Past Surgical History Past Surgical History: Appendectomy, Cholecystectomy, , Tonsillectomy - Past Social History Smoke: No Alcohol: None Drugs: None Lives: Alone Domestic Violence: Negative - Health Maintenance Health Maintenance: Cholesterol (last 03/02/17 = 159), Influenza Vaccine, Pneumococcal Vaccine, Mammogram (May 2016). denies: Tetanus (unsure), Colonoscopy (never had one- endoscopy in 2006) Pneumonia Vaccine: Yes Resuscitation Status: Resusciation Status Resuscitation Status Do Not Resuscitate Review of Systems - Review of Systems Constitutional: negative: Fever, Chills, Sweats, Weakness Eyes: negative: pain, vision change ENT: negative: Ear Pain, Ear Discharge, Nose Pain, Nose Discharge, Nose Congestion, Mouth Pain, Mouth Swelling, Throat Pain, Throat Swelling Respiratory: negative: Cough, Dry, Shortness of Breath, Hemoptysis, SOB with Excertion, Pleuritic Pain, Sputum, Wheezing Cardiovascular: negative: Chest Pain, Palpitations, Orthopnea, Paroxysmal Noc. Dyspnea, Edema, Light Headedness Gastrointestinal: negative: Nausea, Vomiting, Abdominal Pain, Diarrhea, Constipation, Melena, Hematochezia Genitourinary: negative: Dysuria, Frequency, Incontinence, Hematuria Musculoskeletal: negative: Shoulder Pain, Arm Pain Skin: negative: Rash, Lesions Neurological: negative: Weakness, Numbness, Incoordination, Confusion - Medications/Allergies Allergies/Adverse Reactions: Allergies Allergy/AdvReac Type Severity Reaction Status Date / Time No Known Drug Allergies Allergy Verified 03/17/17 07:36 Current Inpatient Medications: Current Inpatient Medications Acetaminophen (Tylenol Extra Strength) 500 mg PO Q4 [facility] Albuterol/Ipratropium (Duoneb) 3 ml NEB Q4 PRN PRN Reason: Wheezing Allopurinol (Zyloprim) 300 mg PO DAILY [facility] Atenolol (Tenormin) 25 mg PO DAILY [facility] Stop: 03/22/17 20:00 Azithromycin (Zithromax) 250 mg PO DAILY [facility] Stop: 03/23/17 08:59 Calcium/Vitamin D (Caltrate With Vit D) 1 each PO DAILY [facility] Digoxin (Lanoxin) 125 mcg PO DAILY [facility] Hydrochlorothiazide (Hydrodiuril) 25 mg PO DAILY [facility] Levofloxacin (Levaquin) 500 mg PO D [facility] Stop: 03/27/17 09:00 Lisinopril (Prinivil) 20 mg PO DAILY [facility] Multivitamins (Tab-A-Tara) 1 each PO DAILY [facility] Pravastatin Sodium (Pravachol) 20 mg PO DAILY [facility] Exam - Exam Vital Signs: Vital Signs (72 hours) 03/17/17 03/20/17 14:00 08:30 Blood Pressure 117/55 Blood Pressure 117/55 [Left Arm] Blood Pressure 153/63 [Right Arm] General: Alert, Oriented to Person, Oriented to Place, Oriented to Time, Cooperative HEENT: Atraumatic, PERRLA, EOMI, Mouth Mucous membr. moist/[place], Nose Mucous membr. moist/[place], Dentition Normal, Hearing Grossly Normal Neck: Normal Range of Motion. No: Lymphadenopathy Carotids: WNL Thyroid: WNL Lungs: Clear to auscultation, Normal air movement, Speaks full Sentences, Respiratory Distress. No: Wheezes, Rales, Rhonchi Cardiovascular: Regular rate, Normal S1, Normal S2, No murmurs. No: Gallops, Rubs Abdomen: Normal bowel sounds, Soft, No tenderness, No hepatospenomegaly, No masses Integumentary: Normal, [place], Warm, Dry Extremities: No clubbing, No cyanosis Neurological: Normal gait, Normal speech, Strength Equal Bilat, Normal tone Psych/Mental Status: Mental status NL, Mood NL, Appropriate Affect, Intact Judgment Assessment/Plan - Assessment/Plan (1) Gait disturbance Status: Acute Assessment: Will start PT and OT (2) Hypertension Status: Acute Qualifiers: Hypertension type: essential hypertension Qualified Code(s): I10 - Essential (primary) hypertension Assessment: continue wit home meds (3) Pneumonia Status: Acute Qualifiers: Pneumonia type: due to unspecified organism Laterality: right Lung location: lower lobe of lung Qualified Code(s): J18.1 - Lobar pneumonia, unspecified organism Assessment: improved, will finish antibiotics VTE Assessment - RISK FACTOR SCORE VTE RISK FACTOR SCORES: AGE OVER 60 YEARS, ACUTE INFECTION OTHER THEN SEPSIS - RISK VTE MODERATE RISK: SCORE OF 2 (RISK PROXIMAL DVT 2-4%) PROPHYAXIS NEEDED
== END 2017-03-26 10:30 | disposition home health service (06) | DRG 194 ==
LOC: SOUTH 10:36
PROVIDERS: ADMIT Family Medicine; ATTEND Family Medicine
DX: J18.9 Pneumonia, unspecified organism (principal); C91.90 Lymphoid leukemia, unspecified not having achieved remission; I50.9 Heart failure, unspecified; I10 Essential (primary) hypertension; I48.2 Chronic atrial fibrillation; E78.4 Other hyperlipidemia
CPT/HCPCS: 36415; 85025

== ENCOUNTER 2019-04-04 16:30 | Outpatient (CLI) | payer MEDICARE, OTHER | END 2019-04-04 16:35 | disposition home or self-care (01) | LOC: LABRHC 16:30 | PROVIDERS: ATTEND Family Medicine | DX: Z00.00 Encounter for general adult medical examination without abnormal findings (principal) | CPT/HCPCS: 83036 ==